=== PATIENT | female | born 1945 | race Hispanic/Latino ===

== ENCOUNTER → 2021-07-28 | Outpatient (CLI) | payer OTHER | END | disposition home or self-care (01) | LOC: RAH 16:03 | PROVIDERS: ATTEND Physician Assistant | DX: M25.78 Osteophyte, vertebrae (principal); I77.9 Disorder of arteries and arterioles, unspecified; M54.6 Pain in thoracic spine; M41.9 Scoliosis, unspecified; Z90.49 Acquired absence of other specified parts of digestive tract | CPT/HCPCS: 72074; 72082 ==

== ENCOUNTER 2021-08-27 02:25 | Emergency (ER) | payer OTHER ==
[~2021-08-27] VITALS: Ht 144.8 cm; Wt 68.5 kg
[~2021-08-27 02:25] MED LIST: CEPH500B PO; PHEN-847 PO
[2021-08-27 02:49] VITALS: BP 185/66
[2021-08-27] MEDS ORDERED: SULFAMETHOX-TMP DS 800/160 TAB PO SCH (03:00)
[2021-08-27] MEDS ORDERED: PHENAZOPYRIDINE HCL 200 MG TABLET PO ONE (03:00)
[2021-08-27] MEDS ORDERED: MACR100 PO (03:04)
[2021-08-27] MEDS ORDERED: PHEN-847 PO (03:04)
[2021-08-27 03:05] LABS: APPEARANCE,URINE CLEAR (CLEAR); BILIRUBIN,URINE NEGATIVE (NEGATIVE); COLOR,URINE YELLOW (YELLOW); GLUCOSE, URINE (UA) NEGATIVE (NEGATIVE); KETONES,URINE NEGATIVE (NEGATIVE); LEUKOCYTE ESTERASE ,URINE LARGE (NEGATIVE); NITRATE,URINE POSITIVE (NEGATIVE); OCCULT BLOOD,URINE LARGE (NEGATIVE); PROTEIN,URINE NEGATIVE (NEGATIVE); UROBILINOGEN,URINE 0.2 mg/dL (0.2-1.0)
[2021-08-27 03:15] LABS: BACTERIA,URINE Moderate /HPF (None Seen)
[2021-08-27] MEDS ORDERED: NITROFURANTOIN MONOHYD/M-CRYST 100 MG CAPSULE PO ONE (03:30)
== END 2021-08-27 03:19 | disposition home or self-care (01) ==
LOC: EDH 02:25
DX: N39.0 Urinary tract infection, site not specified (principal); I10 Essential (primary) hypertension; I25.2 Old myocardial infarction; Z88.0 Allergy status to penicillin; Z88.6 Allergy status to analgesic agent; Z79.899 Other long term (current) drug therapy; Z98.890 Other specified postprocedural states
CPT/HCPCS: 81001; 87088

== ENCOUNTER → 2021-09-29 | Outpatient (CLI) | payer OTHER ==
[~2021-09-29] MED LIST changes: +MACR100 PO
== END | disposition home or self-care (01) ==
LOC: RAH 13:31
PROVIDERS: ATTEND Physical Medicine & Rehabilitation
DX: S12.9XXA Fracture of neck, unspecified, initial encounter (principal); M47.812 Spondylosis without myelopathy or radiculopathy, cervical region; X58.XXXA Exposure to other specified factors, initial encounter; Y93.89 Activity, other specified; Y92.89 Other specified places as the place of occurrence of the external cause; Y99.8 Other external cause status
CPT/HCPCS: 72141

== ENCOUNTER → 2021-10-20 | Outpatient (CLI) | payer OTHER | END | disposition home or self-care (01) | LOC: RAH 07:32 | PROVIDERS: ATTEND Physical Medicine & Rehabilitation | DX: M47.26 Other spondylosis with radiculopathy, lumbar region (principal); M48.061 Spinal stenosis, lumbar region without neurogenic claudication; Z88.6 Allergy status to analgesic agent; Z88.8 Allergy status to other drugs, medicaments and biological substances | CPT/HCPCS: 72148 ==

== ENCOUNTER 2023-09-01 14:13 | Emergency (ER) | payer OTHER ==
[~2023-09-01] VITALS: Ht 144.8 cm; Wt 62.1 kg
[2023-09-01 15:35] LABS: RAPID GROUP A STREP negative (NEGATIVE)
[2023-09-01 15:43] LABS: INFLUENZA TYPE A NEGATIVE FOR TYPE A (NEGATIVE); INFLUENZA TYPE B NEGATIVE FOR TYPE B (NEGATIVE)
[2023-09-01 15:54] LABS: SARS-CoV-2, RNA, NAAT NEGATIVE SARS CoV-2 (NEGATIVE)
[2023-09-01 16:08] VITALS: BP 146/59; PULSE 65; RESP 17; O2SAT 96
[2023-09-01] MEDS ORDERED: AZIT250T9 PO (16:22)
[2023-09-01] MEDS ORDERED: BENZ-39 PO (16:22)
== END 2023-09-01 16:29 | disposition home or self-care (01) ==
LOC: EDH 14:13
DX: R05.9 Cough, unspecified (principal); Z20.822 Contact with and (suspected) exposure to COVID-19; R50.9 Fever, unspecified; E78.00 Pure hypercholesterolemia, unspecified; I10 Essential (primary) hypertension; Z88.0 Allergy status to penicillin; Z88.8 Allergy status to other drugs, medicaments and biological substances; Z79.899 Other long term (current) drug therapy; Z79.2 Long term (current) use of antibiotics; Z96.659 Presence of unspecified artificial knee joint
CPT/HCPCS: 87635; 87804; 87880

== ENCOUNTER 2023-11-16 05:54 | Day surgery (SDC) | payer OTHER ==
[2023-11-14 10:30] VITALS: BP 162/50; PULSE 60; RESP 16; TEMP 97.4
[2023-11-16] VITALS (16 sets, daily range): BP systolic 119–162; BP diastolic 47–76; PULSE 55–64; RESP 13–18; TEMP 97.5–97.8
[~2023-11-16] VITALS: Ht 144.8 cm; Wt 61.6 kg
[~2023-11-16 05:54] MED LIST changes: +ASCO100031 PO; +ASPI-1443 PO; +ATOR40TA71 PO; +CARV6.25 PO; -CEPH500B PO; +CETI-89 PO; +ERGO500093 PO; +LINA145C PO; +LOSA50TA64 PO; -MACR100 PO; +MELA5TAB66 PO; +NITR0.4T50 SL; +OLOP5DRO21 OU; -PHEN-847 PO; +SYSTANE EYE DROPS OU
[2023-11-16] MEDS ORDERED: acetaMINOPHEN 1,000 MG/100 ML VIAL IV ONE (06:50)
[2023-11-16] MEDS ORDERED: EPINEPHrine PF 1MG (1:1,000) 1 MG/ML AMP ONE (06:50)
[2023-11-16] MEDS ORDERED: FAMOTIDINE 20MG VIAL IV ONE (06:50)
[2023-11-16] MEDS ORDERED: ketaMINE 50MG/ML SYRINGE 50 MG/ML DISP.SYRIN ONE (06:56)
[2023-11-16] MEDS ORDERED: rocuRONium bROMide 10MG/1ML 5ML VL ONE (07:03)
[2023-11-16] MEDS ORDERED: LIDOCAINE PF 100MG/5ML (2%) SYRINGE 5ML ONE (07:03)
[2023-11-16] MEDS ORDERED: proPOFol 10 MG/ML 20ML VIAL IV ONE (07:03)
[2023-11-16] MEDS ORDERED: FENTanyl CITRate PF 50 MCG/1 ML 2ML VIAL ONE (07:04)
[2023-11-16] MEDS ORDERED: ondanSETRON 4MG INJ ONE (07:41)
[2023-11-16] MEDS ORDERED: dexaMETHasone SOD PHOSPHATE 10MG/ML 1ML VIAL ONE (07:41)
[2023-11-16] MEDS ORDERED: ePHEDrine SULFate 50 MG/ML AMPULE ONE (07:47)
[2023-11-16] MEDS: EPINEPHrine PF 1MG (1:1,000) 1 MG/ML AMP IVP ONE (07:52)
[2023-11-16] MEDS: LACTATED RINGERS 1000ML 1,000 ML IV ONE (08:11)
[2023-11-16] MEDS: CLINDAMYCIN IVPB 900MG/50ML 50 ML IV ONE (08:12)
[2023-11-16] MEDS ORDERED: GLYCOPYRROLATE 0.2 MG/ML 5 ML VIAL ONE (09:26)
[2023-11-16] MEDS ORDERED: NEOSTIGMINE METHYLSULFATE 1MG/ML IV ONE (09:26)
[2023-11-16] MEDS ORDERED: SUGAMMADEX SODIUM 200 MG/2 ML VIAL IV ONE (09:49)
[2023-11-16] MEDS ORDERED: ACET-2079 PO (09:50)
[2023-11-16] MEDS ORDERED: CYCL5TAB PO (09:50)
[2023-11-16] MEDS ORDERED: ONDA-245 PO (09:50)
== END 2023-11-16 11:45 | disposition home or self-care (01) ==
LOC: DAH 05:54
PROVIDERS: ATTEND Student in an Organized Health Care Education/Training Program
DX: S46.111A Strain of muscle, fascia and tendon of long head of biceps, right arm, initial encounter (principal); M75.21 Bicipital tendinitis, right shoulder; M24.111 Other articular cartilage disorders, right shoulder; M94.211 Chondromalacia, right shoulder; M19.011 Primary osteoarthritis, right shoulder; S43.084A Other dislocation of right shoulder joint, initial encounter; I11.9 Hypertensive heart disease without heart failure; E78.5 Hyperlipidemia, unspecified; F41.9 Anxiety disorder, unspecified; K21.9 Gastro-esophageal reflux disease without esophagitis; Z98.890 Other specified postprocedural states; Z90.49 Acquired absence of other specified parts of digestive tract; Z90.710 Acquired absence of both cervix and uterus; Z95.5 Presence of coronary angioplasty implant and graft; Z88.1 Allergy status to other antibiotic agents; Z88.8 Allergy status to other drugs, medicaments and biological substances; Z96.653 Presence of artificial knee joint, bilateral; Z79.899 Other long term (current) drug therapy; Z83.3 Family history of diabetes mellitus; W19.XXXA Unspecified fall, initial encounter; Y93.89 Activity, other specified; Y92.090 Kitchen in other non-institutional residence as the place of occurrence of the external cause; Y99.8 Other external cause status
CPT/HCPCS: 29822; 64415; 29824; 29999; A4663; J7030; A4452; J7120; J3490 ×6; J3010; J1100; J2003; J0171 ×2; J2704; J2405; J2710; A6223; A4930; A4215; A4223; A4222; A4221

== ENCOUNTER → 2024-04-22 | Outpatient (CLI) | payer OTHER ==
[~2024-04-22] MED LIST changes: +ACET-2079 PO; +CYCL5TAB3 PO; +ONDA-245 PO
--- NOTE | 2024-04-22 14:15 | HMCIMG ---
Exam Type: CT sinuses without contrast Technique: Examination is done with multiple axial slices as well as coronal and sagittal reformations. No contrast was used. FINDINGS: Examination shows no air fluid levels to suggest acute sinusitis. No significant inflammatory changes of the mucosa of the paranasal sinuses are noted. There is no osteitis to suggest chronic inflammation. No bone destruction is seen. The ostiomeatal units are preserved and so are the nasal middle meatus regions bilaterally. The nasofrontal and sphenoethmoidal recesses are patent. The lamina papyracea and fovea ethmoidalis are preserved. The angel matilde is well-seen. The nasopharyngeal recesses are intact. The visualized portions of the airway are intact, as well. There are no other gross abnormalities. IMPRESSION: NORMAL PARANASAL SINUS CT. NO EVIDENCE OF ACUTE OR CHRONIC SINUSITIS.
== END | disposition home or self-care (01) ==
LOC: RAH 12:50
PROVIDERS: ATTEND Otolaryngology Plastic Surgery within the Head & Neck
DX: J32.8 Other chronic sinusitis (principal)
CPT/HCPCS: 70486

== ENCOUNTER 2024-08-01 05:34 | Day surgery (SDC) | payer OTHER ==
[2024-07-30 09:32] VITALS: BP 120/52; PULSE 56; RESP 18; TEMP 97.5
[2024-07-30 09:33] LABS: BASOPHILS # (AUTO) 0.06 K/uL (0.00-0.20); BASOPHILS % (AUTO) 0.8 % (0.0-5.0); EOSINOPHILS # (AUTO) 0.24 K/uL (0.00-0.70); EOSINOPHILS % (AUTO) 3.3 % (0.0-8.0); HEMATOCRIT 37.8 % (36-48); IMMATURE GRANULOCYTE ABSOLUTE 0.01 K/uL (0-1); LYMPHOCYTES # (AUTO) 2.1 K/uL (1.0-4.8); LYMPHOCYTES % (AUTO) 29.1 % (21.0-51.0); MEAN CORPUSCULAR HEMOGLOBIN 30.7 pg (27.0-33.0); MEAN CORPUSCULAR HGB CONC 33.1 g/dL (32.0-36.0); MEAN CORPUSCULAR VOLUME 92.9 fL (79-99); MONOCYTES # (AUTO) 0.6 K/uL (0.1-1.0); MONOCYTES % (AUTO) 7.7 % (3.0-13.0); NEUTROPHILS # (AUTO) 4.3 K/uL (1.8-7.7); PLATELET COUNT (AUTO) 209 K/uL (130-400); RED BLOOD CELL COUNT(AUTO) 4.07 MIL/uL (4.00-5.50); RED CELL DISTRIBUTION WIDTH 12.8 % (11.0-15.5); WHITE BLOOD COUNT (AUTO) 7.3 K/uL (4.8-10.8)
[2024-07-30 09:45] LABS: CREATININE 0.7 mg/dL (0.5-1.0); POTASSIUM 4.9 mmol/L (3.5-5.1)
[2024-07-30 09:47] LABS: INR 1.03 (0.85-1.15); PROTHROMBIN TIME 10.9 SEC (9.6-11.6)
[2024-07-30 09:49] LABS: PARTIAL THROMBOPLASTIN TIME 28.9 SEC (26.3-35.5)
[2024-08-01] VITALS (16 sets, daily range): BP systolic 103–138; BP diastolic 42–61; PULSE 56–66; RESP 14–19; TEMP 96.6–97.6
[~2024-08-01] VITALS: Ht 144.8 cm; Wt 54.9 kg
[~2024-08-01 05:34] MED LIST changes: -ACET-2079 PO; +AZELASTINE HCL NASAL; -CYCL5TAB3 PO; +DENO60DI SQ; +LIDO700A30 TP; -LINA145C PO; +LOSA25TA41 PO; -MELA5TAB66 PO; -ONDA-245 PO; +VIBE75TA PO; +gabapentin PO
[2024-08-01] MEDS ORDERED: LACTATED RINGERS 1000ML 1,000 ML IV ONE (06:35)
[2024-08-01] MEDS ORDERED: acetaMINOPHEN 100 ML ONE (06:42)
[2024-08-01] MEDS ORDERED: FAMOTIDINE 20MG VIAL IV ONE (06:43)
[2024-08-01] MEDS ORDERED: LIDOCAINE PF 100MG/5ML (2%) SYRINGE 5ML ONE (06:50)
[2024-08-01] MEDS ORDERED: proPOFol 10 MG/ML 20ML VIAL IV ONE (06:50)
[2024-08-01] MEDS ORDERED: FENTanyl CITRate PF 50 MCG/1 ML 2ML VIAL ONE (06:51)
[2024-08-01] MEDS ORDERED: ondanSETRON 4MG INJ ONE (07:12)
[2024-08-01] MEDS ORDERED: dexaMETHasone SOD PHOSPHATE 4 MG/ML 1ML VIAL ONE (07:12)
[2024-08-01] MEDS: ceFAZolin SODIUM 2 GM VIAL ONE (07:15)
[2024-08-01] MEDS ORDERED: ePHEDrine SULFate 50 MG/ML AMPULE ONE (07:18)
[2024-08-01] MEDS ORDERED: MELO5CAP3 PO (07:19)
[2024-08-01] MEDS: ROPivacaine 0.5% 5MG/ML 30ML ONE (07:42)
--- NOTE | 2024-08-01 08:15 | OP ---
Operative Note: DATE OF PROCEDURE: 08/01/24 SURGEON: YAHIR PERKINS MD PRODUCTION ADMINISTRATIVE ASSISTANT: Giovanni Mcfadden ANESTHESIA: General ANESTHESIOLOGIST/DELICATESSEN CLERK: Debra Dominguez PREOPERATIVE DIAGNOSIS: Left leg mass POSTOPERATIVE DIAGNOSIS: Left leg mass PROCEDURE: Left leg subcutaneous mass excision, 1 x 1-1/2 cm in size ESTIMATED BLOOD LOSS: None INDICATIONS: 79-year-old female with left leg medial sided mass distal to the knee that was tender to palpation and causing her significant pain. After discussion of the risks, benefits, and alternatives, the patient voluntarily agreed to undergo the aforementioned procedure. DESCRIPTION OF PROCEDURE: The patient was properly identified in the preoperative holding area, surgical site marking verified, surgery consent reviewed. The patient was then taken to the operating room and placed in the supine position on the operating room table. After induction of general anesthesia, preoperative antibiotics were given as per floor schedule, all bony prominences were well-padded, and a well-padded left thigh tourniquet was placed but not inflated at this time. The left lower extremity was then prepped and draped in the usual sterile fashion. Surgical timeout was done verifying correct surgery site site location to be performed. We then began the procedure by making an approximately 4 cm long incision directly centered over the mass. We encountered with firm globules of subcutaneous fat without significant discrete mass. One area palpable firm tissue was excised and sent as specimen. There appeared to be no other masses with palpation of the region. Our dissection did have the pes insertion site visible. No pathologic tissue was noted. The wound was then thoroughly irrigated out with normal saline. Deep fat and subcutaneous closure were performed using 2-0 Vicryl. Ropivacaine was injected in the surrounding subc utaneous tissues. Running subcuticular 3-0 Monocryl was used to close the skin with Dermabond applied over the top. The tourniquet was deflated and a sterile soft dressing was applied with 4 x 4's and an MONA. The patient was then awakened from anesthesia and taken the recovery room in stable condition. YAHIR PERKINS MD Aug 01, 2024 08:15
--- NOTE | 2024-08-01 10:15 | NUR ---
crutch training complete pt with good return demonstration ambulating utilizing crutches with WBAT orders
== END 2024-08-01 10:03 | disposition home or self-care (01) ==
LOC: DAH 05:34
PROVIDERS: ATTEND Student in an Organized Health Care Education/Training Program
DX: M79.89 Other specified soft tissue disorders (principal); L72.9 Follicular cyst of the skin and subcutaneous tissue, unspecified; M79.605 Pain in left leg; I10 Essential (primary) hypertension; I25.10 Atherosclerotic heart disease of native coronary artery without angina pectoris; Z79.82 Long term (current) use of aspirin; Z95.5 Presence of coronary angioplasty implant and graft; Z96.653 Presence of artificial knee joint, bilateral; Z88.1 Allergy status to other antibiotic agents; Z88.8 Allergy status to other drugs, medicaments and biological substances; Z88.5 Allergy status to narcotic agent; Z79.899 Other long term (current) drug therapy; Z98.890 Other specified postprocedural states
CPT/HCPCS: 80048; 85025; 85610; 85730; 36415; 27618; 88304; J1100; A4663; J7120; J3490 ×2; J3010; J2003; J2704; J2405; J2795; J0690; A6223; A4649 ×2; A4930 ×2; A5120; A4215; A4213; A4222; A4221; A4216; A4223 ×2

== ENCOUNTER 2024-08-31 21:19 | Emergency (ER) | payer OTHER ==
[~2024-08-31] VITALS: Ht 144.8 cm; Wt 52.8 kg
[~2024-08-31 21:19] MED LIST changes: +MELO5CAP3 PO
[2024-08-31 21:26] VITALS: BP 138/48; PULSE 64; RESP 16; TEMP 98.8; O2SAT 98
--- NOTE | 2024-08-31 22:03 | ERN ---
ED Note History of Present Illness Stated Complaint: SUTURE REMOVAL Chief Complaint: Suture/Staple Removal Time Seen by MD: 21:24 Time Seen by Midlevel: 21:24 Dictation: The patient is a 79-year-old female with a history of hypertension who presents to the ER for suture removal. Patient states two weeks ago she got sutures to her right great toe due to a nail avulsion. Patient denies any fevers. Allergies: Coded Allergies: Penicillins (Unverified Allergy, Unknown, 08/18/21) Proton Pump Inhibitors (Unverified Allergy, Unknown, 11/14/23) amoxicillin (Unverified Allergy, Unknown, 11/14/23) clavulanic acid (Unverified Allergy, Unknown, 11/14/23) codeine (Unverified Allergy, Unknown, 11/14/23) diclofenac (Unverified Allergy, Unknown, 08/18/21) hydrocodone (Unverified Allergy, Unknown, 11/14/23) sulfamethoxazole (Unverified Allergy, Unknown, 11/14/23) tramadol (Unverified Allergy, Unknown, 11/14/23) trimethoprim (Unverified Allergy, Unknown, 11/14/23) Uncoded Allergies: PAIN MEDICATIONS (Adverse Reaction, Unknown, 08/18/21) Home Meds Active Scripts Meloxicam, Submicronized (Meloxicam) 5 Mg Capsule, 5 MG PO DAILY PRN for PAIN for 14 Days, #14 CAP 0 Refills Prov:YAHIR PERKINS MD 08/01/24 Reported Medications Vibegron (Gemtesa) 75 Mg Tablet, 75 MG PO DAILY, TAB 07/30/24 [gabapentin] No Conflict Check, 300 MG PO AD PRN for PAIN 07/30/24 Lidocaine (Lidocaine) 5 % Adh..patch, 1 EACH TP AD PRN for PAIN, ADH.PATCH 07/30/24 Losartan Potassium (Losartan Potassium) 25 Mg Tablet, 25 MG PO AM, TAB 07/30/24 [azelastine hcl] No Conflict Check, 2 SPRAY NASAL AD PRN for congested 07/30/24 Denosumab (Prolia) 60 Mg/Ml Disp.syrin, 60 MG SQ [id number], DIS.SYR 07/30/24 [Systane Eye Drops] No Conflict Check, 1 DROP OU DAILY 11/14/23 Olopatadine HCl (Pataday) 0.1 % Drops, 1 DROP OU DAILY, DROP 11/14/23 Cetirizine HCl (Zyrtec) 10 Mg Tablet, 10 MG PO DAILY, TAB 11/14/23 Ascorbic Acid (Vitamin C) 1,000 Mg Tablet, 1000 MG PO sunday, TAB 11/14/23 Ergocalciferol (Vitamin D2) (Vitamin D2) 1,250 Mcg ([id number] Unit) Capsule, 1250 MCG PO QWEEK, CAP 11/14/23 Atorvastatin Calcium (Atorvastatin Calcium) 40 Mg Tablet, 40 MG PO DAILY, TAB 11/14/23 Aspirin (Aspirin EC) 81 Mg Tablet.dr, 81 MG PO DAILY, TAB 11/14/23 Nitroglycerin (Nitroglycerin) 0.4 Mg Tab.subl, 0.4 MG SL AD PRN for CHEST PAIN, TAB.SL 11/14/23 Losartan Potassium (Losartan Potassium) 50 Mg Tablet, 50 MG PO DAILY, TAB 11/14/23 Carvedilol (Carvedilol) 6.25 Mg Tablet, 6.25 MG PO BID, TAB 11/14/23 Past Medical History Past Medical History: CAD, High Cholesterol, Hypertension Surgical History: Appendectomy, Hysterectomy, Cholecystectomy Surgical History Other: HEART STENTS Social History: Negative, Lives with family History: Not Applicable RN Note Reviewed/Agreed w/PFSH: Yes Review of System Dictation Constitutional: Negative for fever,chills, and weight loss Eyes: Negative for injury, pain,redness, and discharge ENT: Negative for injury,pain or swelling Cardiovascular: Negative for chest pain, palpitations, and edema Respiratory: Negative for shortness of breath, cough, and wheezing, Abdomen/GI: Negative for abdominal pain, nausea, vomiting, diarrhea, and constipation Back: Negative for injury and pain : Negative for injury, bleeding and discharge MS/Extremity: Negative for injury and deformity Skin: Negative for rash, and discoloration positive for suture removal Neuro: Negative for headache, weakness, numbness, tingling, and seizure Psych: Negative for suicide ideation, homicidal ideation, and hallucinations Initial Vital Sign VS Vital Signs Date Time Temp Pulse Resp B/P (MAP) Pulse Ox O2 Delivery O2 Flow Rate FiO2 08/31/24 21:21 98.8 64 16 141/42 98 Room Air 08/31/24 21:26 0 21 Physical Exam Dictation Vital Signs reviewed General Appearance: Alert, oriented x 3, no acute distress, well developed, nourished. Head and Face: non-traumatic. Eyes: PERRL, pink conjunctivas, eyelid no trauma, anterior chamber with arcus senilis. Ears: Pinnas intact and no signs of trauma or erythema ear canals clear and no discharge TM no erythema Nose: No discharge, no bleeding. Oropharynx: Mouth normal, tongue pink. pharynx clear,no erythema, tonsils no exudates, no abscesses noted, mucous membrane moist Neck: Supple, non-tender, no thyromegaly, no masses, no JVD, no bruits Breast:Deferred Chest:No tenderness, no crepitus, no paradoxical movement, no retractions Lungs:Clear, well-ventilated, symmetric, no rales, no wheezing, no rhonchi, no stridor, good breath sounds bilaterally Heart: Regular rate, regular rhythm, no murmur, no gallops Vascular: no peripheral edema, Abdomen: Soft, positive bowel sounds, nondistended, no guarding, nontender, no rebound, no masses no hepatomegaly, no splenomegaly, no Schultz's sign, no hernias. Rectal: Deferred Genital: Deferred Neurological: Normal speech, motor function intact, sensory function intact Musculoskeletal: Neck nontender, full range of motion, back nontender, full range of motion, Extremities: nontender, full range of motion Skin: Color pink, dry, no turgor, no rash, no lacerations, no abrasions, no contusions. Right nail with two sutures, no warmth or draining, no erythema Lymphatic: Deferred Results (Laboratory/Radiology) Labs Reviewed?: Yes ED Course ED Course Vital Signs Date Time Temp Pulse Resp B/P (MAP) Pulse Ox O2 Delivery O2 Flow Rate FiO2 08/31/24 21:26 98.8 64 16 138/48 98 Room Air* 0 21 08/31/24 21:21 98.8 64 16 141/42 98 Room Air Medical Decision Making MDM The patient is a 79-year-old female with a history of hypertension who presents to the ER for suture removal. Patient states two weeks ago she got sutures to her right great toe due to a nail avulsion. Patient denies any fevers. Two sutures were removed from patient's right great toe. Patient tolerated procedure well. No signs of infection, no drainage. Wound is healing well. Differential diagnosis: Laceration, suture removal, cellulitis Need for hospitalization: Patient does not meet criteria for hospitalization. There are no social concerns with this patient. DX & DISP Disposition: Discharge Departure Impression: Primary Impression: Visit for suture removal Condition: Stable Additional Instructions: Please continue to follow up with your foot doctor. Follow up with the primary doctor if anything changes please return to ER. FOLLOW-UP WITH PRIMARY CARE PROVIDER IN 1 TO 2 DAYS. TAKE MEDICATIONS DIRECTED HERE IN THE EMERGENCY ROOM. OKAY TO CONTINUE HOME MEDICATIONS UNLESS OTHERWISE DISCUSSED DURING YOUR VISIT IN THE EMERGENCY ROOM TODAY. RETURN TO YOUR NEAREST EMERGENCY ROOM IF SYMPTOMS WORSEN OR IF THERE IS NO IMPROVEMENT. CALL 911 IF YOU NEED IMMEDIATE ASSISTANCE. TAKE TYLENOL [id number] NEEDED AND IF NO CONTRAINDICATIONS ARE PRESENT. INCREASE ORAL HYDRATION. A WOUND CULTURE OR URINE CULTURE WAS ORDERED HERE IN THE EMERGENCY ROOM DEPARTMENT PLEASE FOLLOW-UP WITH PRIMARY CARE PROVIDER AND ADVISE THEM TO GET REPEAT PORTS FROM OUR FACILITY. IF YOU HAD ANY MONA WRAP/SPLINTS THAT WERE APPLIED HERE, PLEASE DO NOT REMOVE THEM UNTIL YOU SEE YOUR PRIMARY CARE OR SPECIALTY. Referrals: HERNANDEZ GOMES MD (PCP) Time of Disposition: 22:03 I have reviewed the case, and I agree with, Diagnosis and Plan KEEGAN KHAN Aug 31, 2024 22:03
== END 2024-08-31 22:10 | disposition home or self-care (01) ==
LOC: EDH 21:19
DX: S91.111D Laceration without foreign body of right great toe without damage to nail, subsequent encounter (principal); E78.00 Pure hypercholesterolemia, unspecified; I10 Essential (primary) hypertension; I25.10 Atherosclerotic heart disease of native coronary artery without angina pectoris; Z79.82 Long term (current) use of aspirin; Z79.899 Other long term (current) drug therapy; Z88.0 Allergy status to penicillin; Z88.1 Allergy status to other antibiotic agents; Z88.2 Allergy status to sulfonamides; Z88.5 Allergy status to narcotic agent; Z90.49 Acquired absence of other specified parts of digestive tract; Z90.710 Acquired absence of both cervix and uterus; Z95.5 Presence of coronary angioplasty implant and graft; X58.XXXD Exposure to other specified factors, subsequent encounter
CPT/HCPCS: 99282

== ENCOUNTER → 2025-01-29 | Outpatient (CLI) | payer OTHER ==
[~2025-01-29] MED LIST changes: -ASCO100031 PO; +ASCO10004 PO
--- NOTE | 2025-01-29 22:33 | HMCIMG ---
EXAM: CT Head Without Intravenous Contrast. CLINICAL HISTORY: History of falling. TECHNIQUE: Axial computed tomography images of the head/brain without intravenous contrast. Dose reduction technique was used including one or more of the following: automated exposure control, adjustment of mA and kV according to patient size, and/or iterative reconstruction. CONTRAST: Without. COMPARISON: None. FINDINGS: BRAIN: No acute intraparenchymal hemorrhage. No mass lesion. No CT evidence for acute territorial infarct. No midline shift or extra-axial collection. An old infarct is noted in the right parietal lobe. There are periventricular white matter hypodensities, suggestive of chronic small vessel ischemia. There is moderate volume loss. There is atheromatous calcification of the intracranial arteries. VENTRICLES: No hydrocephalus. ORBITS: The orbits are unremarkable. SINUSES AND MASTOIDS: The paranasal sinuses and mastoid air cells are clear. SOFT TISSUES: No significant facial or scalp soft tissue swelling evident. No radiopaque foreign body is seen. BONES: No acute skull fracture. IMPRESSION: 1. No acute intracranial abnormality related to the history of falling. 2. 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 3. 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 /[place]
== END ==
LOC: RAH 13:23
PROVIDERS: ATTEND Physical Medicine & Rehabilitation
DX: I67.82 Cerebral ischemia (principal); I63.9 Cerebral infarction, unspecified; Z91.81 History of falling
CPT/HCPCS: 70450